=== PATIENT | female | born 1980 | race American Indian/Alaskan Native ===

== ENCOUNTER 2020-06-10 13:58 | Emergency (ER) | payer OTHER ==
--- NOTE | 2020-06-10 14:02 | Emergency Department Report ---
Blank Doc - Documentation Documentation: 40-year-old female that presents with heavy vaginal bleeding, dizziness, and w eakness s/p uterine biopsy done last week. Was sent by OBGYN. This initial assessment/diagnostic orders/clinical plan/treatment(s) is/are subject to change based on patient's health status, clinical progression and re- assessment by fellow clinical providers in the ED. Further treatment and workup at subsequent clinical providers discretion. Patient/guardians urged not to elope from the ED as their condition may be serious if not clinically assessed and managed. Initial orders include: 1- Patient sent to MAIN ED for further evaluation and treatment 2- labs 3- UA
[2020-06-10 15:12] LABS: Alanine Aminotransferase 12 units/L (7-56); Albumin 4.2 g/dL (3.9-5); Blood Urea Nitrogen 12 mg/dL (7-17); Calcium 9.2 mg/dL (8.4-10.2); Hemolysis Index 8
[2020-06-10 15:15] LABS: Basophils % (Auto) 0.7 % (0.0-1.8); Eosinophils # (Auto) 0.6 K/mm3 (0.0-0.4); Eosinophils % (Auto) 10.3 % (0.0-4.3); Hematocrit 35.3 % (30.3-42.9); Lymphocytes # (Auto) 1.5 K/mm3 (1.2-5.4); Lymphocytes % (Auto) 26.4 % (13.4-35.0); Mean Corpuscular HGB Conc 34 % (30-34); Mean Corpuscular Volume 94 fl (79-97); Monocytes # (Auto) 0.5 K/mm3 (0.0-0.8); Monocytes % (Auto) 8.1 % (0.0-7.3); Platelet Count 244 K/mm3 (140-440); Red Blood Count 3.77 M/mm3 (3.65-5.03); Red Cell Distribution Width 13.5 % (13.2-15.2)
[2020-06-10 15:16] LABS: BUN/Creatinine Ratio 20
[2020-06-10] MEDS ORDERED: SODIUM CHLORIDE IRRI 500 ML 500 ML IR ONE (16:29)
[2020-06-10 16:36] LABS: Bilirubin,Urine NEG (Negative); Blood,Urine LG (Negative); Color,Urine Straw (Yellow); Mucus,Urine FEW /HPF; Protein,Urine <15 mg/dL mg/dL (Negative); Urobilinogen,Urine < 2.0 mg/dL (<2.0)
[2020-06-10 17:02] VITALS: BP 124/80
--- NOTE | 2020-06-10 17:06 | Emergency Department Report ---
ED Female HPI - General Chief complaint: Vaginal Bleeding Stated complaint: HEAVY BLEEDING/STOMACH PAIN Time Seen by Provider: 06/10/20 14:01 Source: patient Mode of arrival: Ambulatory Limitations: No Limitations - History of Present Illness Initial comments: The patient was evaluated in the emergency department for symptoms described in the history of present illness. He/she was evaluated in the context of the global COVID-19 pandemic, which necessitated consideration that the patient might be at risk for infection with the virus that causes COVID-19. Institutional protocols and algorithms that pertain to the evaluation of patients at risk for COVID-19 are in a state of rapid change based on information released by regulatory bodies including the CDC and federal and state organizations. These policies and algorithms were followed during the patient's care in the emergency department. Please note that these policies, procedures and recommendations changed on a rapid basis. 40-year-old -Turkmen female presents to the emergency room for vaginal bleeding post uterine biopsy procedure that was done on by Dr. Rivas. Patient states that she is been having heavy bleeding that started on Thursday and Thursday and she is going to approxi-1 heavy tampon hourly. Patient denies any shortness of breath or chest pain she just feels tired. Patient states she has a history of fibroids and is scheduled to have a hysterectomy soon. MD Complaint: vaginal bleeding Onset/Timin -: days(s) Quality: other (Vaginal bleeding) Consistency: constant Are you Now?: No - Related Data Allergies Allergy/AdvReac Type Severity Reaction Status Date / Time Corticosteroids AdvReac Shortness Verified 06/10/20 16:31 (Glucocorticoids) of Breath latex AdvReac Rash Verified 06/10/20 16:31 ED Review of Systems ROS: Stated complaint: HEAVY BLEEDING/STOMACH PAIN Other details as noted in HPI Comment: All other systems reviewed and negative ED Past Medical Hx - Social History Smoking Status: Never Smoker Substance Use Type: None ED Physical Exam - General Limitations: No Limitations General appearance: alert, in no apparent distress - Head Head exam: Present: atraumatic, normocephalic - Eye Eye exam: Present: normal appearance - ENT ENT exam: Present: mucous membranes moist - Neck Neck exam: Present: normal inspection - Respiratory Respiratory exam: Present: normal lung sounds bilaterally - Cardiovascular Cardiovascular Exam: Present: regular rate, normal rhythm. Absent: systolic murmur, diastolic murmur, rubs, gallop - GI/Abdominal GI/Abdominal exam: Present: soft. Absent: distended, tenderness - External exam: Present: normal external exam Speculum exam: Present: cervical discharge, vaginal bleeding. Absent: vaginal discharge Bi-manual exam: Present: normal bi-manual exam. Absent: cervical motion tendernes, adnexal tenderness, adnexal mass, uterine enlargement - Extremities Exam Extremities exam: Present: normal inspection - Back Exam Back exam: Present: normal inspection - Neurological Exam Neurological exam: Present: alert, oriented X3, normal gait - Psychiatric Psychiatric exam: Present: normal affect, normal mood - Skin Skin exam: Present: warm, dry, intact, normal color. Absent: rash ED Medical Decision Making - Lab Data Result diagrams: 06/10/20 14:18 06/10/20 14:18 - Medical Decision Making 40-year-old -Turkmen female presents to the emergency room for vaginal bleeding post uterine biopsy procedure that was done on by Dr. Rivas. Patient states that she is been having heavy bleeding that started on Thursday and Thursday and she is going to approxi-1 heavy tampon hourly. Patient denies any shortness of breath or chest pain she just feels tired. Patient states she has a history of fibroids and is scheduled to have a hysterectomy soon. Discussed with patient that the bleeding is minimum that I am able to visualize in the vaginal vault. She does have some serosanguineous bleeding from the eyes osseous closed. She has very little tenderness in the adnexal area. No foreign body appreciated. Also discussed with patient that her blood count is within normal limits no concerns for anemia at this time. Discussed with patient she can take ibuprofen or Tylenol for any pelvic cramping and to give Dr. Rivas office a call first thing in the morning to discuss her ER visit. Patient verbalized understanding. Exam was assisted by nurse Farley. Critical care attestation.: If time is entered above; I have spent that time in minutes in the direct care of this critically ill patient, excluding procedure time. ED Disposition Clinical Impression: Postoperative vaginal bleeding following genitourinary procedure Disposition: TO HOME OR SELFCARE Is pt being admited?: No Does the pt Need Aspirin: No Condition: Stable Additional Instructions: Please do not use tampons only maxi pad. Please quantitative how many packs you are going through to discuss with Dr. Rivas office tomorrow morning. By all means return back to the emergency room if you start having any shortness of breath chest pain feeling faint or syncopal or worsening bleeding. Referrals: PRIMARY CARE,MD [Primary Care Provider] - 3-5 Days AUDELIA RIVAS MD [Staff Physician] - 3-5 Days Forms: Work/School Release Form(ED)
[2020-06-10] MEDS ORDERED: SODIUM CHLORIDE 0.9% IRR 500 ML BOTTLE IR ONE (17:51)
== END 2020-06-10 17:14 | disposition home or self-care (01) ==
LOC: ED 13:58
DX: N99.820 Postprocedural hemorrhage of a genitourinary system organ or structure following a genitourinary system procedure (principal); Z91.040 Latex allergy status; Z88.8 Allergy status to other drugs, medicaments and biological substances
CPT/HCPCS: 36415; 80053; 81001; 84703; 85025; 86850; 86900; 86901

== ENCOUNTER 2020-08-09 05:35 | Observation (INO) | payer OTHER ==
[2020-07-06 14:48] LABS: Basophils % (Auto) 0.5 % (0.0-1.8); Eosinophils # (Auto) 0.5 K/mm3 (0.0-0.4); Eosinophils % (Auto) 8.4 % (0.0-4.3); Hematocrit 33.3 % (30.3-42.9); Hemoglobin 11.3 gm/dl (10.1-14.3); Mean Corpuscular HGB Conc 34 % (30-34); Mean Corpuscular Volume 92 fl (79-97); Monocytes # (Auto) 0.4 K/mm3 (0.0-0.8); Platelet Count 205 K/mm3 (140-440); Red Blood Count 3.62 M/mm3 (3.65-5.03); Red Cell Distribution Width 13.3 % (13.2-15.2)
--- NOTE | 2020-07-06 14:54 | Anesthesia Consultation ---
Anesthesia Consult and Med Hx Date of service: 07/10/20 - Airway Anesthetic Teeth Evaluation: Good ROM Head & Neck: Adequate Mental/Hyoid Distance: Adequate Mallampati Class: Class II Intubation Access Assessment: Probably Good - Pulmonary Exam CTA: Yes - Cardiac Exam Cardiac Exam: RRR - Pre-Operative Health Status ASA Pre-Surgery Classification: ASA2 Proposed Anesthetic Plan: General Nerve Block: TAP - Pulmonary Hx Smoking: No Hx Respiratory Symptoms: No - Cardiovascular System Hx Hypertension: No Hx Cardia Arrhythmia: Yes Hx Valvular Heart Disease: Yes (MVP; occasional palpitations well managed with metoprolol) - Central Nervous System CVA: No - Gastrointestinal Hx Gastroesophageal Reflux Disease: No - Endocrine Hx Renal Disease: No Hx Liver Disease: No Hx Insulin Dependent Diabetes: No Hx Non-Insulin Dependent Diabetes: No Hx Thyroid Disease: No - Hematic Hx Anemia: Yes (no hx blood transfusions) - Other Systems Hx Obesity: No - Additional Comments Anesthesia Medical History Comments: Hx PONV. Recent PCP eval, EKG, and labs on chart reviewed.
[2020-08-03 10:39] LABS: Eosinophils # (Auto) 0.4 K/mm3 (0.0-0.4); Hematocrit 35.6 % (30.3-42.9); Hemoglobin 11.8 gm/dl (10.1-14.3); Lymphocytes # (Auto) 1.6 K/mm3 (1.2-5.4); Lymphocytes % (Auto) 34.9 % (13.4-35.0); Mean Corpuscular HGB Conc 33 % (30-34); Mean Corpuscular Volume 92 fl (79-97); Monocytes # (Auto) 0.4 K/mm3 (0.0-0.8); Monocytes % (Auto) 9.6 % (0.0-7.3); Platelet Count 197 K/mm3 (140-440); Red Blood Count 3.88 M/mm3 (3.65-5.03); Red Cell Distribution Width 14.1 % (13.2-15.2)
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
[~2020-08-09 05:35] MED LIST: ACETAMINOPHEN 500 MG TAB PO SCH; GABAPENTIN 300 MG CAP PO NR; LACTATED RINGERS 1,000 ML IV SCH; MIDAZOLAM 2 MG/2 ML INJ IV NR; SCOPOLAMINE TRANSDERMAL PATCH 72 HR TD NR; ceFAZolin/Water 2 GM/20 ML 2 GM/20 ML SYRINGE IV NR; fentaNYL 100 MCG/2 ML INJ IV PRN
[2020-08-09] MEDS ORDERED: GABAPENTIN 300 MG CAP PO NR (06:00)
[2020-08-09] MEDS ORDERED: SCOPOLAMINE TRANSDERMAL PATCH 72 HR TD NR (06:00)
[2020-08-09] MEDS ORDERED: LACTATED RINGERS 1,000 ML IV SCH ×2 (06:00→13:00)
[2020-08-09] MEDS ORDERED: MIDAZOLAM 2 MG/2 ML INJ IV NR (06:00)
[2020-08-09] MEDS ORDERED: ACETAMINOPHEN 500 MG TAB PO SCH (06:00)
[2020-08-09] MEDS ORDERED: fentaNYL 100 MCG/2 ML INJ IV PRN (06:00)
[2020-08-09] MEDS ORDERED: BACTERIOSTATIC SODIUM CHLORIDE 0.9% 30 ML VIAL INFILTRATI ONE (06:31)
[2020-08-09] MEDS ORDERED: dexAMETHasone 4 MG/ML VIAL ONE (07:05)
[2020-08-09] MEDS ORDERED: BUPIVACAINE-EPINEPHRINE/PF 0.5%-1:200,000 (30 ML) VIAL INFILTRATI ONE (07:05)
[2020-08-09] MEDS ORDERED: LIDOCAINE MPF (2%) 20 MG/1 ML VIAL 5 ML ONE (07:22)
[2020-08-09] MEDS ORDERED: HYDROmorphone 1 MG/1 ML INJ ONE (07:22)
[2020-08-09] MEDS ORDERED: propofoL 200 MG/20 ML VIAL IV ONE (07:22)
[2020-08-09] MEDS ORDERED: HYDROmorphone 1 MG/1 ML INJ IV PRN (07:24)
[2020-08-09] MEDS ORDERED: ONDANSETRON 4 MG/2 ML INJ IV PRN ×2 (07:24→13:00)
--- NOTE | 2020-08-09 07:24 | Anesthesia Day of Surgery ---
Anesthesia Day of Surgery - Day of Surgery Patient Examined: Yes Patient H&P Reviewed: Yes Patient is NPO: Yes Beta Blockers: Yes (metoprolol 08/08/20 PM)
[2020-08-09] MEDS ORDERED: NEOMY 40 MG/POLYMYXIN B 200,000 UNITS/ML (GU) AMPULE IR ONE ×2 (07:27→08:34)
--- NOTE | 2020-08-09 07:29 | Progress Note ---
Regional Anesthesia Block - Regional Anesthesia Block Start Time: 07:11 Stop Time: 07:18 Performed By:: ESTEPHANIA LEZAMA Procedure: Bilateral Ultrasound Guided TAP Block Pt IDd, consent obtained, time out performed. Pt on monitor + O2 via NC, VS stable, sedation given per pre-op RN. Sterile prep. Landmarks identified with ultrasound. [1.5]cc skin wheel with 1% lidocaine. Needle advance in plane with ultrasound. [30]cc [0.25]% bupivacaine [w/ epi] + [4]mg decadron + [100]mcg clonidine injected incrementally with negative aspiration. Procedure repeated on opposite side. Pt tolerated procedure well, no immediate complications noted
[2020-08-09] MEDS ORDERED: PHENYLEPHRINE/NS 1,000 MCG/10 ML SYRINGE (OR USE) IV ONE (08:02)
[2020-08-09] MEDS ORDERED: ROCURONIUM 50 MG/5 ML INJ IV ONE (08:02)
[2020-08-09] MEDS ORDERED: SODIUM CHLORIDE 0.9% 0 ML ONE (08:25)
[2020-08-09] MEDS ORDERED: VASOPRESSIN 20 UNIT/1 ML INJ ONE (08:25)
[2020-08-09] MEDS ORDERED: SODIUM CHLORIDE 0.9% IRRIG SOLN 2000 ML IR ONE (08:35)
[2020-08-09] MEDS ORDERED: GLYCOPYRROLATE 0.4 MG/2 ML INJ ONE (09:34)
[2020-08-09] MEDS ORDERED: ONDANSETRON 4 MG/2 ML INJ ONE (09:34)
[2020-08-09] MEDS ORDERED: NEOSTIGMINE 10MG/10 ML INJ MDV ONE (09:34)
[2020-08-09] MEDS ORDERED: LACTATED RINGERS 1,000 ML ONE (09:35)
[2020-08-09] MEDS ORDERED: KETOROLAC 30 MG/1 ML INJ ONE (09:49)
--- NOTE | 2020-08-09 10:42 | Operative Report ---
Operative Report Operative Report: Date: 08/09/2020 Preoperative diagnosis: 1. Menorrhagia 2. Dysmenorrhea 3. Body mass index of 22 kg/m 4. Uterine fibroid Postoperative diagnosis: 1. Menorrhagia 2. Dysmenorrhea 3. Body mass index of 22 kg/m 4. Uterine fibroid 5. Left ovarian cyst Procedure: 1. Robotic-assisted laparoscopic total hysterectomy with bilateral salpingectomy 2. Left ovarian cystectomy Surgeon: Sally Rivas MD [employer] Inspector: Norma Carpenter Anesthesiologist: Dr. Ana Luisa Rodriguez Anesthesia: General endotracheal anesthesia EBL: Approximately 50 mL Findings: EUA: Uterus palpated to approximately 12 weeks. Uterus was sounded to 10-1/2 cm multiple uterine fibroids. Grossly normal tubes and right ovary. Left ovarian cyst appears simple. Procedure: Patient was taken to the OR and placed in the supine position. General anesthesia was induced and an oral gastric tube was placed. Her neck and head were placed on foam support. Foam eye protection with goggles were secured in place. Then foam face protection was placed and secured. Foam shoulder pads were then positioned on her shoulders for Trendelenburg positioning. She was then placed in dorsolithotomy position. Exam under anesthesia as above. The abdomen and vagina were then prepped and draped in the usual sterile fashion. Timeout was performed. A Alvarez catheter was inserted into the bladder with drainage of clear yellow urine. The operative speculum was introduced into the vagina and the anterior lip of the cervix was grasped with single-toothed tenaculum. The uterus was sounded to 10-1/2 cm. The cervix was progressively dilated to allow the large V care uterine manipulator. The bulb of the manipulator was inflated and the speculum and tenaculum were removed. The cup of the manipulator was placed around the cervix and the blue occluder of the manipulator was properly positioned in the vagina and secured. A laparotomy sponge that was saturated with a solution of polymyxin and saline was placed in the vagina to ensure pneumoperitoneum. Sterile gloves were placed and attention was turned to the abdomen. A 10 mm midline vertical supraumbilical incision was made approximately 10 cm superior to the elevated fundus of the uterus. A 10-12 mm trocar with the lapa roscope and camera attached was introduced through this incision under direct visualization. The abdomen was insufflated. No obvious bowel, bladder, ureteral, or major vascular injury was noted. The patient was then placed in steep Trendelenburg position and the following trochars were placed under direct visualization: 8 mm robotic trochars were placed through incisions made in the bilateral midclavicular lower abdominal region approximately 10 cm lateral to the midline incision, and a 5 mm trocar was placed through an incision made in the right lower lateral pelvis. The 10 mm laparoscope was then replaced by a 5 mm laparoscope that was placed through the 5 millimeter lateral trocar. The 12 mm trocar was then removed and the Alan Vaughn fascial closure device was placed through the incision and a 0 Vicryl was placed through the fascia. Once the suture was secured the 12 mm trocar was reintroduced. Once the trochars were in the appropriate positions, the DeRev robot system was engaged. The EndoShears and bipolar device was placed through the 8 mm trochars and positioned then attention was turned to the console. The uterus was elevated and bilateral salpingectomy was performed. Each tube was removed through the 5 mm trocar and sent to pathology in separate containers. Then the utero-ovarian ligaments were clamped. cauterized and incised bilaterally using 30 W of energy. Then the round ligaments were clamped, cauterized and incised bilaterally. The anterior leaf of the broad ligament was elevated and with careful blunt and sharp dissection the bladder flap was created and dissected away from the lower uterine segment and cervix. The posterior leaf of the broad ligament was dissected away from the uterine vessels. The cup of the uterine manipulator was palpated both anteriorly and posteriorly. The bladder was further dissected away from the lower uterine segment. The uterine vessels were then clamped and cauterized bilaterally. Blanching of the uterus was then noted. Attention was again turned to the anterior lower uterine segment and the bladder was confirmed to be away from the operative field. Then attention was turned again to the posterior where the cup of the manipulator was palpated and a colpotomy was performed down to the cup. The incision was extended in the lateral position to the uterine vessels that were again clamped and cauterized and incised. Continuing along the cup of the manipulator in a circumferential manner the colpotomy was completed. Due to the large size of the uterus the decision was made to remove fibroids prior to removing the uterus and cervix from the vagina. Myomectomy was performed with removal of 5 fibroids. The uterus and cervix were then removed through the vaginal incision. Then the 5 fibroids were removed through the vagina. The pelvis was irrigated with warm normal saline. A moist laparotomy sponge was placed in the vagina to maintain pneumoperitoneum. Attention was turned to the left ovary where cystectomy was performed. The cyst was removed through the vaginal incision as well. The moist laparotomy sponge was replaced in the vagina to maintain pneumoperitoneum. The pelvis was again irrigated with warm normal saline, the vagina cuff was reapproximated using V LOC 180 suture. Then a J stitch was performed to secure the suture. Again the pelvis was copiously irrigated with polymixin in warm normal saline. The laparotomy sponge was removed from the vagina. No obvious evidence of bowel, bladder, ureteral, or major vascular injury was noted. Once hemostasis was noted, David was applied to the operative field to ensure hemostasis. Then the instruments were removed, the robot was disengaged. The 12 mm trocar was removed and the fascia was ligated with the 0 Vicryl suture that was placed at the beginning of the procedure. The patient was taken out of Trendelenburg position, the abdomen was desufflated, the remaining trochars were removed. In cisions were reapproximated using 4-0 Monocryl in a subcuticular manner. Surgiseal was placed over the other incisions. The vagina was then inspected, the cuff was palpated to be intact and no bleeding was noted and clear yellow urine was draining into the Alvarez bag from the bladder at the end of the procedure. Counts were correct 3. Patient was taken to recovery room in stable condition.
[2020-08-09 11:46] LABS: Hematocrit 30.1 % (30.3-42.9); Hemoglobin 10.1 gm/dl (10.1-14.3)
[2020-08-09] MEDS ORDERED: ALBUMIN HUMAN 5% (25 GM/500 ML) INJ IV ONE (11:50)
[2020-08-09] MEDS ORDERED: ePHEDrine SULFATE 50 MG/1 ML INJ ONE (11:52)
[2020-08-09] MEDS ORDERED: ePHEDrine SULFATE 50 MG/1 ML INJ IM ONE (12:00)
--- NOTE | 2020-08-09 12:37 | Post Anesthesia Evaluation ---
- Post Anesthesia Evaluation Patient Participated: Yes Airway Patent: Yes Stable Respiratory Function: Yes Nausea/Vomiting: No Temp > 96.8F: Yes Pain Manageable: Yes Adequeate Hydration: Yes Anesthesia Complications: No Other Comments: Hypotensive in PACU (though not far below preop baseline). Minimal intraoperative blood loss and post op H/H showed small change from preop baseline. Asymptomatic. Suspect volume depletion. Received IVF and albumin bolus with improvement in BP. OK for transfer to floor.
[2020-08-09] MEDS ORDERED: ACETAMINOPHEN 325 MG TAB PO SCH (12:57)
[2020-08-09] MEDS ORDERED: MORPHINE 2 MG/1 ML INJ IV PRN (13:00)
[2020-08-09] MEDS ORDERED: METOCLOPRAMIDE 10 MG TAB PO PRN (13:00)
[2020-08-09] MEDS: ACETAMINOPHEN 500 MG TAB PO SCH ×2 (14:46→20:24)
[2020-08-09] MEDS: KETOROLAC 30 MG/1 ML INJ IV SCH ×2 (15:47→23:37)
[2020-08-09] MEDS: ceFAZolin/NS 1 GM/50 ML 1 GM/50 ML BAG IV SCH (20:26)
--- NOTE | 2020-08-09 21:40 | Event Note ---
Date: 08/09/20 Patient resting in bed, no complaints Operative findings and procedure explained. UO good, clear yellow urine. Plan of care explained. Questions encouraged and answered. She voiced understanding.
[2020-08-09] MEDS ORDERED: FAMOTIDINE 20 MG/2 ML INJ IV SCH (22:00)
[2020-08-09] MEDS ORDERED: BENZOCAINE/MENTHOL LOZENGE MM PRN (22:10)
[2020-08-10] MEDS: ceFAZolin/NS 1 GM/50 ML 1 GM/50 ML BAG IV SCH (04:20)
[2020-08-10] MEDS: KETOROLAC 30 MG/1 ML INJ IV SCH (05:13)
[2020-08-10] MEDS: ACETAMINOPHEN 500 MG TAB PO SCH (06:21)
[2020-08-10] MEDS: SIMETHICONE 80 MG CHEW TAB PO PRN ×2 (06:21→10:03)
[2020-08-10 06:35] LABS: Hematocrit 29.7 % (30.3-42.9); Hemoglobin 10.1 gm/dl (10.1-14.3)
[2020-08-10 08:08] VITALS: BP 106/72
--- NOTE | 2020-08-10 09:27 | Discharge Summary ---
Providers - Providers Date of Admission: 08/09/20 10:27 Date of discharge: 08/10/20 Attending physician: AUDELIA DUMONT Primary care physician: MILANA FITZGERALD Hospitalization Condition: Good Procedures: RALTH, (B) salpingectomy, (L) ovarian cystectomy Hospital course: Normal Disposition: TO HOME OR SELFCARE - Discharge Diagnoses (1) Menorrhagia Status: Resolved (2) Fibroid Status: Resolved (3) Dysmenorrhea Status: Resolved (4) Migraine, unspecified, not intractable, without status migrainosus Status: Chronic (5) Cardiac valve prolapse Status: Chronic Core Measure Documentation - Palliative Care Palliative Care/ Comfort Measures: Not Applicable - Core Measures Any of the following diagnoses?: none Exam - Constitutional Vitals: Temp Pulse Resp BP Pulse Ox 99.3 F 80 18 106/72 100 08/10/20 08:01 08/10/20 08:01 08/10/20 08:01 08/10/20 08:01 08/10/20 08:01 General appearance: Present: no acute distress (Ambulating in room, states she feels fine except for some gas, voiding well) - Neck Neck: Present: supple - Respiratory Respiratory effort: normal Respiratory: bilateral: CTA - Cardiovascular Rhythm: regular - Extremities Extremities: no ischemia, No edema (NT) - Abdominal General gastrointestinal: Present: soft, non-tender, non-distended, normal bowel sounds Female genitourinary: Present: deferred - Integumentary Integumentary: Present: clear, warm, dry (Incisions c/d/i, no s/s infection) - Psychiatric Psychiatric: appropriate mood/affect, intact judgment & insight, memory intact, cooperative - Neurologic Neurologic: gait normal Plan Activity: other (No sex, no driving, no exercising. Ambulate ~1mile on your property a day to prevent clots from developing in your legs. Void frequently. Use your incentive spirometer every hour while awake) Weight Bearing Status: Full Weight Bearing Diet: regular (Avoid spicy, fatty, salty food. Eat small meals frequently. Drink ~64oz water a day. ) Wound: open to air Special Instructions: no heavy lifting (Greater than 25lbs) Follow up with: AUDELIA DUMONT MD [Staff Physician] - (As scheduled) MILANA FITZGERALD MD [Primary Care Provider] - 7 Days (Call your Primary Care provider to discuss resumption of medications) Prescriptions: Ibuprofen [Motrin 800 MG tab] 800 mg PO Q8H PRN #30 tablet PRN Reason: Pain, Mild (1-3) oxyCODONE /ACETAMINOPHEN [Percocet 5/325 mg] 1 - 2 tab PO Q6H PRN #14 tablet PRN Reason: Pain, Moderate (4-6)
[2020-08-10] MEDS ORDERED: IBUPROFEN 800 MG TAB PO PRN (13:00)
[2020-08-10] MEDS ORDERED: oxyCODONE /ACETAMINOPHEN 5-325MG TAB PO PRN (13:00)
== END 2020-08-10 11:25 | disposition home or self-care (01) ==
LOC: OR 05:35 → OB 10:27
PROVIDERS: ADMIT Obstetrics & Gynecology; ATTEND Obstetrics & Gynecology
DX: N92.0 Excessive and frequent menstruation with regular cycle (principal); Z20.828 Contact with and (suspected) exposure to other viral communicable diseases; N94.6 Dysmenorrhea, unspecified; D25.9 Leiomyoma of uterus, unspecified; G43.909 Migraine, unspecified, not intractable, without status migrainosus; I38 Endocarditis, valve unspecified; Z90.710 Acquired absence of both cervix and uterus; Z90.79 Acquired absence of other genital organ(s); Z96.642 Presence of left artificial hip joint; Z98.891 History of uterine scar from previous surgery
CPT/HCPCS: 36415; 58571; 64450; 81025; 85014; 85018; 85025; 86850; 86900; 86901; 88302; 88305; 88307; 96361; 96365; 96366; 96372; 96375; 96376; A4217; G0378; J0690; J1100; J1170; J1885; J2250; J2270; J2370; J2405; J2704; J2710; J3010; J7120; P9045; S2900; U0003